=== PATIENT | female | born 1965 | race Caucasian/White ===

== ENCOUNTER 2023-09-27 12:18 | Outpatient (REF) | payer SELFPAY ==
[2023-09-27 15:47] LABS: Iron 72 mcg/dL (30-160); Percent Iron Saturation 29 % (15-50); Total Iron Binding Capacity 251 mcg/dL (228-428); Unsaturated Iron Binding 179 ug/dL
[2023-09-27 15:55] LABS: Ferritin 83 ng/mL (10-250)
== END 2023-09-27 12:19 | disposition home or self-care (01) ==
LOC: HO.MANLDS 12:18
PROVIDERS: Visit Provider Physician Assistant
DX: D50.0 Iron deficiency anemia secondary to blood loss (chronic) (principal)
CPT/HCPCS: 36415; 82728; 83540

== ENCOUNTER 2024-10-21 08:40 | Outpatient (REF) | payer SELFPAY ==
[2024-10-21 13:11] LABS: MANUAL DIFF FLAG NO
[2024-10-21 13:29] LABS: Basophils Percent Auto 1.1 % (0-2); Eosinophils Absolute Auto 0.1 X10*3/uL (0.0-0.4); Eosinophils Percent Auto 2.7 % (0-4); Hematocrit 39.6 % (37.0-47.0); Imm Gran Abs Auto 0.01 X10*3/uL (0.00-0.03); Imm Gran Pct Auto 0.3 % (0.0-0.4); Lymphocytes Absolute Auto 1.3 X10*3/uL (1.2-4.9); Lymphocytes Percent Auto 35.1 % (20-40); Mean Corpuscular HGB Conc 32.8 g/dl (31.0-35.0); Mean Corpuscular Volume 91.2 fL (80.0-98.0); Mean Platelet Volume 9.9 fL (9.4-12.3); Monocytes Absolute Auto 0.3 X10*3/uL (0.1-1.2); Monocytes Percent Auto 6.6 % (2-11); Neutrophils Percent Auto 54.2 % (45-73); Platelet Count 231 X10*3/uL (160-400); Red Blood Count 4.34 X10*6/uL (4.20-5.50); Red Cell Distribution Width 13.1 % (11.0-16.0); White Blood Count 3.8 X10*3/uL (4.8-10.8)
[2024-10-21 13:38] LABS: Estimated Average Glucose 111 mg/dL; Hemoglobin A1C 125.0825 umol/L; Hemoglobin A1c % 5.5 % (<6.0); Total Hemoglobin (HGBA1C) 3376.9875 umol/L
[2024-10-21 13:55] LABS: Alanine Aminotransferase 19 U/L (0-31); Albumin Level 3.9 g/dL (3.5-5.0); Alkaline Phosphatase 63 U/L (39-117); Anion Gap 12 (12-20); Aspartate Amino Transferase 25 U/L (5-31); Bilirubin Total 0.6 mg/dL (0.0-1.0); Blood Urea Nitrogen 13 mg/dL (9-16); Carbon Dioxide 27 mmol/L (22-29); Chloride 106 mmol/L (96-108); Cholesterol 224 mg/dL (<200); Estimated Glomerular Filt Rate 52; Glucose Random 88 mg/dL (60-115); HDL Cholesterol 59 mg/dL (>40); Iron 177 mcg/dL (30-160); LDL Cholesterol Calculated 154 mg/dL (<100); Percent Iron Saturation 71 % (15-50); Sodium 141 mmol/L (135-145); Total Iron Binding Capacity 251 mcg/dL (228-428); Total Protein 6.6 g/dL (6.5-8.0); Triglycerides 55 mg/dL (<150); Unsaturated Iron Binding 74 ug/dL
[2024-10-21 14:05] LABS: Vitamin B12 578 pg/mL (200-900)
[2024-10-21 14:06] LABS: Ferritin 62 ng/mL (10-250); Thyroid Stimulating Hormone 1.43 uIU/mL (0.32-4.0)
[2024-10-21 14:26] LABS: Insulin 4 uU/mL (2-29); T4 Thyroxine 5.4 ug/dL (4.5-12.0)
[2024-10-22 07:42] LABS: Prolactin 6.8 ng/mL
[2024-10-22 08:26] LABS: HBS Num1 399.42 mIU/mL (0-7.99); ~Hepatitis B Surface Antibody REACTIVE (Nonreactive)
[2024-10-23 17:42] LABS: Thyroid Peroxidase Antibodies 1 IU/mL (<9)
== END 2024-10-21 08:41 | disposition home or self-care (01) ==
LOC: HO.MANLDS 08:40
PROVIDERS: Visit Provider Physician Assistant
DX: Z00.00 Encounter for general adult medical examination without abnormal findings (principal); Z23 Encounter for immunization; R63.5 Abnormal weight gain; Z13.1 Encounter for screening for diabetes mellitus
CPT/HCPCS: 36415; 80053; 80061; 82530; 82607; 82728; 83036; 83525; 83540; 84146; 84436; 84443; 85025; 86376; 86706